=== PATIENT | female | born 1955 | race Asian ===

== ENCOUNTER 2017-11-24 04:28 | Emergency (ER) | payer OTHER ==
[~2017-11-24] VITALS: Ht 165.1 cm; Wt 131.5 kg
[2017-11-24 06:35] VITALS: BP 123/78; TEMP 98
== END 2017-11-24 06:40 | disposition home or self-care (01) ==
LOC: ED 04:28
DX: M10.9 Gout, unspecified (principal)
CPT/HCPCS: 36415; 84550; 99283

== ENCOUNTER 2019-03-30 08:57 | Emergency (ER) | payer OTHER ==
[~2019-03-30] VITALS: Ht 165.1 cm; Wt 129.7 kg
[2019-03-30] MEDS ORDERED: ASPIRIN325 M1 PO (09:13)
[2019-03-30 11:05] VITALS: BP 141/75; TEMP 97.9
== END 2019-03-30 11:05 | disposition home or self-care (01) ==
LOC: ED 08:57
DX: R51 Headache (principal); J30.9 Allergic rhinitis, unspecified; H92.01 Otalgia, right ear
CPT/HCPCS: 96372; 99283; J1885

== ENCOUNTER 2019-05-03 12:50 | Emergency (ER) | payer OTHER ==
[~2019-05-03] VITALS: Ht 165.1 cm; Wt 129.7 kg
[~2019-05-03 12:50] MED LIST: ASPIRIN325 M1 PO
[2019-05-03 14:17] VITALS: BP 148/88; TEMP 98.8
== END 2019-05-03 14:15 | disposition home or self-care (01) ==
LOC: ED 12:50
DX: M10.9 Gout, unspecified (principal); M25.471 Effusion, right ankle
CPT/HCPCS: 84550; 96372; 99283; J1885

== ENCOUNTER 2020-10-15 11:16 | Emergency (ER) | payer OTHER ==
[~2020-10-15] VITALS: Ht 165.1 cm; Wt 129.7 kg
[2020-10-15 12:01] VITALS: TEMP 99.2
[2020-10-15 12:43] LABS: PLATELET COUNT 337 K/uL (152-353)
[2020-10-15 12:50] LABS: POTASSIUM 3.1 mmol/L (3.6-5.2)
[2020-10-15 14:57] VITALS: BP 185/86
== END 2020-10-15 14:57 | disposition home or self-care (01) ==
LOC: ED 11:16
PROVIDERS: Family Medicine
DX: E86.0 Dehydration (principal); K52.89 Other specified noninfective gastroenteritis and colitis; E87.6 Hypokalemia
CPT/HCPCS: 80053; 81000; 82150; 83690; 85027; 96360; 96361; 96374; 96375; 99284; J2405

== ENCOUNTER 2022-08-30 14:40 | Outpatient (CLI) | payer OTHER | END 2022-08-30 23:59 | disposition home or self-care (01) | LOC: RAD 14:40 | PROVIDERS: ATTEND Nurse Practitioner Family | DX: M25.551 Pain in right hip (principal) ==

== ENCOUNTER 2023-06-01 10:07 | Outpatient (CLI) | payer OTHER | END 2023-06-01 20:25 | disposition home or self-care (01) | LOC: RAD 10:07 | PROVIDERS: ATTEND Physician Assistant | DX: M25.551 Pain in right hip (principal) ==